=== PATIENT | male | born 1995 | race Caucasian/White ===

== ENCOUNTER 2018-01-15 20:11 | Day surgery (SDC) | payer BC ==
[~2018-01-15 20:11] MED LIST: Dexamethasone 20 MG/5 ML VIAL ONE; Glycopyrrolate 0.2 MG/ML 5 ML SYRINGE ONE; Lidocaine 1% PF 5 ML VIAL ONE; Ondansetron HCl/PF 4 MG/2 ML Vial ONE; PROPOFOL 200 MG/20 ML VIAL ONE; Succinylcholine Chloride 20 MG/ML 10 ml SYRINGE FS ONE
[2018-01-15] MEDS ORDERED: Bupivacaine HCl 0.5%/Epinephrine 1:200,000/PF 30 ml Vial ONE (20:27)
[2018-01-15] MEDS ORDERED: Fentanyl 100 MCG/2 ML VIAL ONE (20:33)
[2018-01-15] MEDS ORDERED: Midazolam HCl 2 mg/2 ml Vial ONE (20:33)
[2018-01-15] MEDS ORDERED: Meperidine HCl/PF 25 MG/ML VIAL ONE (21:29)
[2018-01-15] MEDS ORDERED: Ondansetron HCl/PF 4 MG/2 ML Vial IVP PRN (21:44)
[2018-01-15] MEDS ORDERED: Promethazine HCl 25 MG/ML VIAL SLOW IVP PRN (21:44)
[2018-01-15] MEDS ORDERED: Promethazine HCl 25 MG/ML VIAL IM PRN (21:44)
--- NOTE | 2018-01-16 04:34 | OP ---
DATE OF PROCEDURE: 01/15/2018 PREOPERATIVE DIAGNOSIS: Acute appendicitis. POSTOPERATIVE DIAGNOSIS: Acute appendicitis. PROCEDURE: Laparoscopic video appendectomy. SURGEON: Dr. Kimbrough. ANESTHESIA: General. Local 0.5% Marcaine with epinephrine, 30 mL. PROCEDURE: Patient taken to the operating room where under general anesthesia, Traore catheter placed at the beginning of the procedure, removed at the end. Abdomen clipped of hair, prepared with Chlor aPrep, draped in routine fashion. 0.5% Marcaine with epinephrine infiltrated into skin and subcutane ous tissue about each port site. Infraumbilical incision made. Pneumoperitoneum to 15 mmHg obtained with the Veress needle, replacing it with a 5 port and video laparoscope inserted. Right lateral leos bcostal incision made and a [address] Suprapubic incision made and a 12 port placed. Appendix w as noted to be acutely inflamed. Mesoappendix taken down with LigaSure to stump of the appendix, div iding the stump with Endo-DIANE blue load stapler. Stapled cecal stump was hemostatic and secure, but oozing slightly and Hemoclips applied. Good hemostasis ensured. Irrigant and pneumoperitoneum evacu ated. Appendix submitted to pathology. Suprapubic fascia approximated with 0 Vicryl, skin approxima nicko with interrupted subdermal 4-0 Monocryl. DermaGlue applied.
--- NOTE | 2018-01-16 07:53 | HP ---
HISTORY OF PRESENT ILLNESS: This is a 22-year-old male, [employer] student, sophomore, presents to [facility] for right lower quadrant pain, had a CAT scan demonstrating retrocecal appendix. He was transferre d here for appendectomy. Risk of infection, bleeding, visceral injury, open procedure discussed, he consents. ALLERGIES: None. TOBACCO: Rarely. ALCOHOL: Rarely. MEDICATIONS: None routinely. PAST SURGICAL AND MEDICAL HISTORY: Noncontributory. REVIEW OF SYSTEMS: Ten point noncontributory. PHYSICAL EXAMINATION VITAL SIGNS: Temperature 98.9 degrees, heart rate 80, respiratory rate 18, blood pressure 147/85. HEENT: Unremarkable. LUNGS: Clear to auscultation. CARDIAC: Regular rate and rhythm without murmur or gallop. ABDOMEN: Soft, tenderness in right lower quadrant, guarding, rebound. IMAGING: CAT scan in the [facility], retrocecal appendix changes consistent with appendicitis, per iappendiceal fat stranding. LABORATORY DATA: White count 5, hemoglobin 15. Liver function tests normal. Sodium 140, potassium 3.7, chloride 102. ASSESSMENT AND PLAN: Acute appendicitis. Recommend laparoscopic video appendectomy. Risks and bene fits as discussed above.
== END 2018-01-15 22:30 | disposition home or self-care (01) ==
LOC: SDC 20:11
PROVIDERS: ATTEND Specialist
PROC: 0DTJ4ZZ Resection of Appendix, Percutaneous Endoscopic Approach (ICD-10-PCS; principal; 2018-01-15)
DX: K35.80 Unspecified acute appendicitis (principal)
CPT/HCPCS: 88304; J0131; J0670; J1100; J2001; J2175; J2250; J2405; J2704; J3010